=== PATIENT | female | born 1985 | race Caucasian/White ===

== ENCOUNTER 2023-11-09 18:27 | Outpatient (CLI) | payer OTHER, SELFPAY | END 2023-11-09 18:28 | disposition home or self-care (01) | PROVIDERS: Visit Provider Registered Nurse | DX: R53.83 Other fatigue (principal); Z13.220 Encounter for screening for lipoid disorders; Z13.1 Encounter for screening for diabetes mellitus | CPT/HCPCS: 80061; 82306; 82947; 84443 ==

== ENCOUNTER 2023-11-26 09:44 | Outpatient (CLI) | payer OTHER, SELFPAY | END 2023-11-26 09:45 | disposition home or self-care (01) | LOC: NFLDREF 09:45 | PROVIDERS: PCP Family Medicine; Visit Provider Family Medicine | DX: R03.0 Elevated blood-pressure reading, without diagnosis of hypertension (principal) | CPT/HCPCS: 80053 ==